=== PATIENT | female | born 1945 | race Caucasian/White ===

== ENCOUNTER 2023-10-29 16:10 | Emergency (ER) | payer MEDICARE, OTHER ==
[~2023-10-29] VITALS: Ht 154.9 cm; Wt 75.2 kg
[2023-10-29] MEDS ORDERED: BISOPROLOL FUMA1 TAB PO (16:47)
[2023-10-29] MEDS ORDERED: LISINOPRIL10 MG PO (16:47)
[2023-10-29] MEDS ORDERED: OMEPRAZOLE40 MG PO (16:47)
[2023-10-29] MEDS ORDERED: ATORVASTATIN CA10 MG PO (16:47)
[2023-10-29] MEDS ORDERED: MULTIPLE VITAMI1 TA5 PO (16:48)
[2023-10-29] MEDS ORDERED: LOW DOSE ASPIRI81 M1 PO (16:48)
[2023-10-29 17:47] VITALS: BP 114/79
== END 2023-10-29 17:40 | disposition home or self-care (01) ==
LOC: ED 16:10
DX: M25.512 Pain in left shoulder (principal); W18.30XA Fall on same level, unspecified, initial encounter; W22.8XXA Striking against or struck by other objects, initial encounter